=== PATIENT | male | born 1975 | race Caucasian/White ===

== ENCOUNTER 2018-10-10 11:24 | Emergency (ER) | payer MEDICAID ==
[~2018-10-10] VITALS: Ht 182.9 cm; Wt 70.8 kg
[2018-10-10 11:29] VITALS: BP 144/83
--- NOTE | 2018-10-10 11:39 | NUR ---
Patient being evaluated by physician at bedside.
[2018-10-10] MEDS ORDERED: NACL 0.9% 1,000 ML IV ONE (11:45)
[2018-10-10] MEDS ORDERED: KETOROLAC 30 MG/ML VIAL IVP ONE (11:45)
[2018-10-10] MEDS ORDERED: NACL 0.9% 1,000 ML IV SCH (11:45)
--- NOTE | 2018-10-10 11:45 | NUR ---
C/O UMBILICAL REGION PAIN X YESTERDAY----LAST BM TODAY DENIES STRAINING. pt reports has had umbilical hernia for a while but has been growing in size in the past few years. not tender to palpation. VSS; PATIENT POSITIONED FOR COMFORT; HOB ELEVATED; BEDRAILS UP X1; BED DOWN. ER MD MADE AWARE OF PT STATUS.
--- NOTE | 2018-10-10 12:05 | NUR ---
IV STARTED LEFT FOREARM 20G AND LABS DRAWN; LAB WORK HANDED TO [employer].
[2018-10-10 12:16] LABS: BASOPHILS # (AUTO) 0.1 K/uL (0.00-0.22); BASOPHILS % (AUTO) 0.9 % (0.0-2.0); EOSINOPHILS # (AUTO) 0.1 K/uL (0-0.4); EOSINOPHILS % (AUTO) 1.9 % (0.0-4.0); HEMATOCRIT 45.5 % (36-52); HEMOGLOBIN 15.1 g/dL (12.0-18.0); LYMPHOCYTES # (AUTO) 2.3 K/uL (2.0-11.5); LYMPHOCYTES % (AUTO) 31.3 % (20.5-51.1); MEAN CORPUSCULAR HEMOGLOBIN 30 pg (27-31); MEAN CORPUSCULAR HGB CONC 33 g/dL (33-37); MEAN CORPUSCULAR VOLUME 89.4 fL (80-94); MONOCYTES # (AUTO) 0.4 K/uL (0.8-1.0); NEUTROPHILS # (AUTO) 4.4 K/uL (1.8-7.7); NEUTROPHILS % (AUTO) 59.9 % (42.2-75.2); PLATELET COUNT (AUTO) 265 K/uL (140-450); RED BLOOD CELL COUNT(AUTO) 5.09 MIL/uL (4.20-6.10); RED CELL DISTRIBUTION WIDTH 14.2 % (11.6-13.7); WHITE BLOOD COUNT (AUTO) 7.4 K/uL (4.8-10.8)
[2018-10-10 12:48] LABS: PROTHROMBIN TIME 9.9 secs (10.8-13.4)
[2018-10-10 12:49] LABS: ALBUMIN 3.4 g/dL (3.4-5.0); AMYLASE 75 U/L (25-115); ANION GAP 9.9 (8-16); ASPARTATE AMINOTRANSFERASE 20 U/L (15-37); CARBON DIOXIDE 29.1 mmol/L (21-32); CHLORIDE 106 mmol/L (98-107); CREATININE 1.2 mg/dL (0.7-1.3); GFR ARICAN-AMERICAN 85 mL/min (>90); GLUCOSE 158 mg/dL (74-106); SODIUM SERUM 141 mmol/L (136-145); TOTAL BILIRUBIN 0.3 mg/dL (0.0-1.0); UREA NITROGEN, BLOOD 12 mg/dL (7-18)
[2018-10-10 13:16] LABS: LIPASE 168 U/L (73-393)
[2018-10-10 14:57] VITALS: BP 144/83
--- NOTE | 2018-10-16 06:52 | NUR ---
Late entry. Confirmed with RN that 1000ml IV 0.9 NS bolus was given and completed at 1306. 100 ml/hr 0.9 NS then began at 1306 and ended at 1406.
== END 2018-10-10 14:58 | disposition home or self-care (01) ==
LOC: MED 11:24
DX: K43.9 Ventral hernia without obstruction or gangrene (principal); F17.210 Nicotine dependence, cigarettes, uncomplicated
CPT/HCPCS: 36415; 71045; 74176; 80053; 82150; 83690; 84484; 85025; 85610; 85730; 93005; 96374; 99284; G0482; J1885; J7030; Q0092

== ENCOUNTER 2018-11-09 11:55 | Emergency (ER) | payer MEDICAID ==
[~2018-11-09] VITALS: Ht 182.9 cm; Wt 116.7 kg
[2018-11-09 11:55] VITALS: BP 152/98
--- NOTE | 2018-11-09 12:00 | NUR ---
PT AMBULATED TO BED 1.
--- NOTE | 2018-11-09 12:12 | NUR ---
43 Y MALE BIB SELF C/O RT SIDE FACE CELLULITIS S/P HAD IRRIGATION AND DEBRIMENT AT [facility] 1 DAY AGO. PER PT, SWELLING IS WORSENING SO HE CAME TO THE ER. PT STATES HE HAS HAD THE CYST FOR ABOUT A YEAR NOW BUT RECENTLY IRRITATED IT LAST TUESDAY WHEN HE SCRATCHED HIS HEAD WHILE PAINTING. RT EYE DROOPING. VISION CLEAR IN BOTH EYES. RT SIDE OF HEAD ROUNDED CYST, -REDNESS. BED IS DOWN, LOCKED, BED RAIL X 1, ERMD NOTIFIED. HX-NONE MEDS-NONE NKA PAIN 2/10 TET-UNK
--- NOTE | 2018-11-09 14:00 | NUR ---
PT IN BED, VSS AT THIS TIME. AA0X4
[2018-11-09] MEDS ORDERED: cefTRIAXone 1,000 MG in LIDOCAINE MPF 1% - 5 mL VIAL 2.1 ML IM ONE (14:25)
[2018-11-09 15:10] VITALS: BP 148/90
--- NOTE | 2018-11-09 15:10 | NUR ---
Patient discharged with v/s stable. Written and verbal after care instructions given and explained. Patient alert, oriented and verbalized understanding of instructions. Ambulatory with steady gait. All questions addressed prior to discharge. ID band removed. Patient advised to follow up with PMD. Rx of Bactrim DS and Keflex given. Patient educated on indication of medication including possible reaction and side effects. Opportunity to ask questions provided and answered.
== END 2018-11-09 15:10 | disposition home or self-care (01) ==
LOC: MED 11:55
DX: L02.811 Cutaneous abscess of head [any part, except face] (principal)
CPT/HCPCS: 70450; 96372; 99284; J0696; J2001

== ENCOUNTER 2018-11-15 11:32 | Emergency (ER) | payer MEDICAID ==
[~2018-11-15] VITALS: Ht 182.9 cm; Wt 119.3 kg
[2018-11-15 11:43] VITALS: BP 159/92
--- NOTE | 2018-11-15 11:45 | NUR ---
BIB SELF. AAO X4. C/O ABCESS ON RT FOREHEAD. PT DENIES PAIN OR DRAINAGE. PT WAS SEEN AT [facility] LAST TUESDAY FOR SAME ABSCESS AND WAS TOLD TO RETURN IN A WEEK. DENIES N/V/D. AFEBRILE AT THIS TIME. PT DENIES PAIN TO THE SITE. HOB UP. BED SIDE RAILS UP X1. ON LOW BED POSITION, LOCKED. ER MADE AWARE OF PT STATUS.
[2018-11-15] MEDS ORDERED: LIDOCAINE 1% ***ER ONLY *** 10 MG/ML VIAL INJ ONE (12:00)
--- NOTE | 2018-11-15 12:06 | NUR ---
DR CHEEMA AT BEDSIDE FOR I&D. PT IS TOLERATING WELL.
[2018-11-15] MEDS ORDERED: LIDOCAINE MPF 1% 5mL VIAL ONE (12:15)
--- NOTE | 2018-11-15 12:20 | NUR ---
PT TOLERATED I&D WELL. WOUND CARE PROVIDED BY DR CHEEMA.
[2018-11-15 13:06] VITALS: BP 132/85
--- NOTE | 2018-11-15 13:06 | NUR ---
Patient discharged with v/s stable. Written and verbal after care instructions given and explained. Patient verbalized understanding. Ambulatory with steady gait. All questions addressed prior to discharge. Advised to follow up with PMD.
== END 2018-11-15 13:06 | disposition home or self-care (01) ==
LOC: MED 11:32
DX: L02.01 Cutaneous abscess of face (principal); F17.210 Nicotine dependence, cigarettes, uncomplicated
CPT/HCPCS: 10060; 81002; 99283; J2001

== ENCOUNTER 2021-02-26 23:01 | Emergency (ER) | payer MEDICAID ==
[~2021-02-26] VITALS: Ht 182.9 cm; Wt 112.9 kg
[2021-02-26 23:15] VITALS: BP 152/80
[2021-02-26 23:44] LABS: BASOPHILS # (AUTO) 0.1 K/uL (0.00-0.22); BASOPHILS % (AUTO) 0.9 % (0.0-2.0); EOSINOPHILS # (AUTO) 0.2 K/uL (0-0.4); HEMATOCRIT 41.9 % (36-52); HEMOGLOBIN 14.1 g/dL (12.0-18.0); LYMPHOCYTES # (AUTO) 1.9 K/uL (2.0-11.5); LYMPHOCYTES % (AUTO) 23.6 % (20.5-51.1); MEAN CORPUSCULAR HEMOGLOBIN 30 pg (27-31); MEAN CORPUSCULAR HGB CONC 34 g/dL (33-37); MEAN CORPUSCULAR VOLUME 89.6 fL (80-94); MONOCYTES # (AUTO) 0.5 K/uL (0.8-1.0); MONOCYTES % (AUTO) 6.6 % (1.7-9.3); NEUTROPHILS # (AUTO) 5.3 K/uL (1.8-7.7); NEUTROPHILS % (AUTO) 66.9 % (42.2-75.2); PLATELET COUNT (AUTO) 250 K/uL (140-450); RED BLOOD CELL COUNT(AUTO) 4.68 MIL/uL (4.20-6.10); RED CELL DISTRIBUTION WIDTH 13.8 % (11.6-13.7); WHITE BLOOD COUNT (AUTO) 7.9 K/uL (4.8-10.8)
[2021-02-26 23:57] LABS: ALBUMIN 3.7 g/dL (3.4-5.0); ANION GAP 10.7 (8-16); CARBON DIOXIDE 28.7 mmol/L (21-32); CREATININE 1.1 mg/dL (0.6-1.3); POTASSIUM 3.4 mmol/L (3.5-5.1); TOTAL BILIRUBIN 0.3 mg/dL (0.0-1.0)
--- NOTE | 2021-02-27 00:26 | NUR ---
PT TAKEN TO CT.
--- NOTE | 2021-02-27 00:35 | NUR ---
PT RETURN FROM CT
--- NOTE | 2021-02-27 00:40 | NUR ---
PT. IS A 45 Y/O MALE THAT CAME INTO ED WITH RIGHT SIDE ABDOMINAL PAIN. PT. STATES THAT IT STARTED "A COUPLE DAYS AGO." DENIES FALL. PT. STATES HE HAS HAD HERNIA FOR 2 YEARS NOW. PT. RATES PAIN 0/10 ON THE PAIN SCALE AT THIS TIME. DENIES N/V/D; SKIN IS PINK/WARM/DRY; AAOX4 WITH EVEN AND STEADY GAIT; HR EVEN AND REGULAR; PT DENIES ANY FEVER, CP, SOB, OR COUGH AT THIS TIME; VSS; PATIENT POSITIONED FOR COMFORT; HOB ELEVATED; BEDRAILS UP X1; BED DOWN. ER MD MADE AWARE OF PT STATUS. PMH: HERNIA ALLERGIES: NKA
[2021-02-27] MEDS ORDERED: ERYT5OIN51 OP (03:06)
[2021-02-27] MEDS ORDERED: IBUP-2213 PO (03:06)
--- NOTE | 2021-02-27 03:13 | NUR ---
Patient discharged with v/s stable. Written and verbal after care instructions given and explained. Patient alert, oriented and verbalized understanding of instructions. Ambulatory with steady gait. All questions addressed prior to discharge. ID band removed. Patient advised to follow up with PMD. Rx of ERYTHRMOYCIN AND MOTRIN given. Patient educated on indication of medication including possible reaction and side effects. Opportunity to ask questions provided and answered.
== END 2021-02-27 03:13 | disposition home or self-care (01) ==
LOC: MED 23:01
DX: H10.9 Unspecified conjunctivitis (principal); B96.89 Other specified bacterial agents as the cause of diseases classified elsewhere; F17.200 Nicotine dependence, unspecified, uncomplicated; F15.90 Other stimulant use, unspecified, uncomplicated; Z98.890 Other specified postprocedural states
CPT/HCPCS: 36415; 80053; 83690; 85025; 99284